=== PATIENT | female | born 1990 | race Caucasian/White ===

== ENCOUNTER → 2025-01-31 | Outpatient (CLI) | payer OTHER, SELFPAY ==
--- NOTE | 2025-01-31 09:10 | RAD_ITS ---
PROCEDURE: THORACIC SPINE 3 VIEWS 01/31/2025 REASON FOR EXAM: BACK PAIN TECHNIQUE: Two views of the thoracic spine were obtained. COMPARISON: None FINDINGS: Straightening of the normal thoracic kyphosis. No acute abnormality is seen. RAD/Thoracic Spine 3 Views IMPRESSION: Loss of the normal thoracic kyphosis. Reading Location: [place] [id number]
--- NOTE | 2025-01-31 09:10 | RAD_ITS ---
PROCEDURE: CERV SPINE 2 OR 3 VIEWS 01/31/2025 REASON FOR EXAM: BACK PAIN TECHNIQUE: 4 views of the cervical spine. FINDINGS: Vertebrae: Normal disc spaces: Normal Alignment: Straightening of the normal cervical lordosis. soft tissues: Unremarkable RAD/Cerv Spine 2 or 3 Views IMPRESSION: Loss of the normal cervical lordosis. No acute abnormality is seen. Reading Location: [id number]
== END | disposition home or self-care (01) ==
LOC: MTRAD 09:10
PROVIDERS: PCP Family Medicine; Referring Provider Physician Assistant Surgical; Visit Provider Physician Assistant Surgical
DX: M54.9 Dorsalgia, unspecified (principal)
CPT/HCPCS: 72040; 72072